=== PATIENT | female | born 1975 | race Caucasian/White ===

== ENCOUNTER 2017-05-04 10:17 | Inpatient (IN) | payer OTHER ==
[~2017-05-04] VITALS: Ht 152.4 cm; Wt 55.4 kg
[~2017-05-04 10:17] MED LIST: ACYCLOVIR400 MG GT; ARTIFICIAL TEA3.5 G1 BOTH EYES; ATROVENT 00.5 MG/2.5 IH; BACTRIM,SEPT1 TABLET GT; BENEFIBER PA1 PACKET PO; CAL-GEST500 MG GT; CARAFATE1 GM GT; CERTAGEN237 ML PEG; CHILDREN'S160 MG/23 GT; COLACE10 MG/ML GT; COLACE100 MG GT; Carafate GT; Cipro GT; DELTASONE20 MG GT; DULCOLAX10 MG PR; DUONEB 2.5-0.5 M3 ML AEROSOL; DUONEB 2.5-0.5 M3 ML IH; DUONEB3 ML IH; EFFEXOR XR75 MG GT; EFFEXOR75 MG PO; EMLA5 GM TP; ENULOSE10 GM/15 M GT; FERROUS SU220 MG/51 GT; FLEET ENEMA-AD118 ML PR; FLORASTOR250 MG GT; FLOVENT 22120 INHALA IH; Feosol GT; Flovent 220 mcg IH; GAS-X80 MG GT; GENERLAC10 GM/15 M GT; GLYCERIN PR; K-SOL20 MEQ/15 GT; LASIX10 MG GT; LASIX10 MG/ML GT; LEVAQUIN500 MG GT; LEVSIN GT; LEXAPRO10 MG GT; LIORESAL I2000 MCG/1 IT; LIORESAL I500 MCG/ML IT; LOVENOX40 MG/0.4 SC; Levsin GT; METHENAMINE HIPP1 G1 GT; MILK OF MAGN GT; MIRALAX17 GM GT; MITRAZOL POWDER30 GM TP; MYLICON,MYLANTA80 MG GT; NYSTATIN100000 UN1 PO; PERIDEX1 ML MM; PERIDEX1 ML PO; PHILLIPS'400 MG/5 M GT; POTASSIUM20 MEQ/11 GT; PROVENTIL,2.5 MG/3 M IH; QUESTRAN4 GM/PACKE PEG; RANITIDINE HCL75 MG GT; RISAMINE OINTM113 GM TP; SIMETHICONE80 MG GT; TEGRETOL-XR,CA100 MG PEG; TEGRETOL100 MG GT; TEGRETOL100 MG PO; THERAGRAN5 ML GT; TRAMADOL HCL50 MG GT; TRANSDERM-SCO1 PATCH TD; TYLENOL REGULA325 MG GT; TYLENOL325 M1 GT; Tegretol GT; Theragran-M,Centrum, PEG; Tylenol Regular Stre PEG; VITAMIN D31000 UNI1 PO; VITAMIN D31000 UNI2 GT; XOPENEX1.25 MG/0. IH; ZANTAC75 M1 GT; ZITHROMAX250 MG GT; ZOSYN 3.3753.375 GM IV; ZOVIRAX200 MG/5 M GT; ZYVOX20 MG/1 ML GT; Zofran IV; Zovirax GT; [UNRECOGNIZED DRUG - OTHER] PEG
[2017-05-04 12:03] LABS: HEMATOCRIT 39.3 % (36.0-46.0); MCH 33.8 PG (29.0-34.0); MCHC 32.6 G/DL (30.0-36.0); MCV 103.7 FL (83-99); MEAN PLAT.VOLUME 10.8 uM^3 (9.5-12.4); PLATELET COUNT 133 K/uL (156-360); RBC DIS.WIDTH-CV 12.8 % (11.8-14.6); RBC DIS.WIDTH-SD 48.9 % (39-53); RED BLOOD COUNT 3.79 M/uL (3.80-5.20); WHITE BLOOD COUNT 6.5 K/uL (4.1-10.2)
[2017-05-04 12:04] LABS: CREATININE 0.5 mg/dL (0.6-1.3); POTASSIUM 3.6 mEq/L (3.7-5.4)
[2017-05-04 12:12] LABS: CHLORIDE 104 mEq/L (99-109); POTASSIUM 3.7 mEq/L (3.7-5.4); SODIUM 141 mEq/L (136-147)
[2017-05-04 12:13] LABS: INTER. NORMALIZED RATIO 1.1; PROTHROMBIN TIME 11.4 (9.2-11.2)
[2017-05-04 12:14] LABS: GLUCOSE 83 mg/dL (70-99)
[2017-05-04 12:15] LABS: ANION GAP 12 MEQ/L (2-14)
[2017-05-04 12:18] LABS: GFR ESTIMATE (CALCULATED) > 59 mL/min/
[2017-05-04 12:19] LABS: UREA NITROGEN (BUN) 20 mg/dL (9-23)
[2017-05-04] MEDS ORDERED: VITAMIN D31000 UNI2 GT (14:05)
[2017-05-04 16:14] VITALS: BP 122/76
[2017-05-04 18:54] LABS: METH RESISTANT S AUREUS PCR NEGATIVE (NEGATIVE)
[2017-05-04 18:59] LABS: PROBE CHECK PASS; SPECIMEN PROCESSING CONTROL PASS
[2017-05-04 19:15] VITALS: BP 146/79
[2017-05-04 23:17] VITALS: BP 125/62
[2017-05-05 04:39] VITALS: BP 132/79
[2017-05-05 06:12] LABS: MCH 34.2 PG (29.0-34.0); MCHC 32.3 G/DL (30.0-36.0); MCV 106.1 FL (83-99); MEAN PLAT.VOLUME 11.6 uM^3 (9.5-12.4); PLATELET COUNT 98 K/uL (156-360); RBC DIS.WIDTH-CV 12.5 % (11.8-14.6); RBC DIS.WIDTH-SD 49.3 % (39-53)
[2017-05-05 06:42] LABS: ANION GAP 14 MEQ/L (2-14); CHLORIDE 110 MEQ/L (99-109); GFR ESTIMATE (CALCULATED) > 59 mL/min/; GLUCOSE 53 mg/dL (70-99); POTASSIUM 3.7 MEQ/L (3.7-5.4); SAMPLE HEMOLYSIS CHECK 0; SAMPLE ICTERIC CHECK 0; SAMPLE LIPEMIA CHECK 0; SODIUM 140 MEQ/L (136-147); UREA NITROGEN (BUN) 18 mg/dL (9-23)
[2017-05-05 07:36] LABS: ABS NEUTROPHIL COUNT 4.2; ANISOCYTOSIS 1+; ATYPICAL LYMPHOCYTE 1.7 %; BAND NEUTROPHILS 5.3 % (0-8.0); EOSINOPHIL ABS CT 0; INSTRUMENT ABS NEUTROPHIL CT 3.9 K/uL; LYMPHOCYTES 14.9 % (15.0-45.0); MACROCYTES 1+; SEG.NEUTROPHILS 78.1 % (46.0-76.0)
[2017-05-05 07:41] VITALS: BP 123/71
[2017-05-05 11:33] VITALS: BP 127/78
[2017-05-05 15:35] VITALS: BP 129/80
[2017-05-05 19:30] VITALS: BP 145/76
[2017-05-05 22:53] LABS: ADD MIUA? NO; BILIRUBIN NEGATIVE; BLOOD NEGATIVE; COLOR YELLOW ((YELLOW)); GLUCOSE (STRIP) NEGATIVE; KETONES 80; LEUKOCYTES NEGATIVE; NITRITE NEGATIVE; PROTEIN (STRIP) 30; SPECIFIC GRAVITY 1.023 (1.000-1.030); UROBILINOGEN 0.2 MG/DL (0.2-1.0)
[2017-05-05 23:45] VITALS: BP 127/71
[2017-05-06 04:39] VITALS: BP 132/67
[2017-05-06 05:48] LABS: EOSINOPHIL (%) 0.4 % (0-5); HEMATOCRIT 32.5 % (36.0-46.0); IMMATURE GRANULOCYTE (%) 0.2 % (0.0-0.7); INSTRUMENT ABS NEUTROPHIL CT 4.2 K/uL; LYMPHOCYTE COUNT 0.8 K/uL (1.0-2.8); MCHC 32.3 G/DL (30.0-36.0); MCV 105.2 FL (83-99); MEAN PLAT.VOLUME 10.9 uM^3 (9.5-12.4); MONOCYTE (%) 5.7 % (3-12); MONOCYTE COUNT 0.3 K/uL (0-0.8); NEUTROPHIL (%) 77.8 % (45-76); NEUTROPHIL COUNT 4.2 K/uL (1.8-6.4); PLATELET COUNT 111 K/uL (156-360); RBC DIS.WIDTH-CV 12.5 % (11.8-14.6); RBC DIS.WIDTH-SD 48.3 % (39-53); RED BLOOD COUNT 3.09 M/uL (3.80-5.20); WHITE BLOOD COUNT 5.4 K/uL (4.1-10.2)
[2017-05-06 07:28] LABS: CHLORIDE 113 mEq/L (99-109); SODIUM 141 mEq/L (136-147)
[2017-05-06 07:30] LABS: GLUCOSE 43 mg/dL (70-99)
[2017-05-06 07:31] LABS: ANION GAP 14 MEQ/L (2-14)
[2017-05-06 07:33] LABS: GFR ESTIMATE (CALCULATED) > 59 mL/min/
[2017-05-06 07:34] LABS: UREA NITROGEN (BUN) 14 mg/dL (9-23)
[2017-05-06 09:00] VITALS: BP 127/66
[2017-05-06 13:25] VITALS: BP 119/56
[2017-05-06 17:23] VITALS: BP 123/72
[2017-05-06 19:30] VITALS: BP 134/69
[2017-05-07 00:46] VITALS: BP 132/66
[2017-05-07 04:19] VITALS: BP 136/70
[2017-05-07 05:48] LABS: EOSINOPHIL (%) 0.9 % (0-5); EOSINOPHIL COUNT 0.1 K/uL (0-0.3); HEMATOCRIT 34.3 % (36.0-46.0); IMMATURE GRANULOCYTE (%) 0.4 % (0.0-0.7); INSTRUMENT ABS NEUTROPHIL CT 5.4 K/uL; LYMPHOCYTE COUNT 1.1 K/uL (1.0-2.8); MCHC 34.4 G/DL (30.0-36.0); MCV 104.6 FL (83-99); MEAN PLAT.VOLUME 11.3 uM^3 (9.5-12.4); MONOCYTE (%) 5.5 % (3-12); MONOCYTE COUNT 0.4 K/uL (0-0.8); NEUTROPHIL (%) 77.3 % (45-76); NEUTROPHIL COUNT 5.4 K/uL (1.8-6.4); PLATELET COUNT 124 K/uL (156-360); RBC DIS.WIDTH-CV 12.4 % (11.8-14.6); RBC DIS.WIDTH-SD 47.7 % (39-53); RED BLOOD COUNT 3.28 M/uL (3.80-5.20)
[2017-05-07 06:26] LABS: ANION GAP 14 MEQ/L (2-14); CHLORIDE 107 MEQ/L (99-109); GFR ESTIMATE (CALCULATED) > 59 mL/min/; GLUCOSE 46 mg/dL (70-99); POTASSIUM 2.7 MEQ/L (3.7-5.4); SAMPLE HEMOLYSIS CHECK 0; SAMPLE ICTERIC CHECK 0; SAMPLE LIPEMIA CHECK 0; SODIUM 137 MEQ/L (136-147); UREA NITROGEN (BUN) 7 mg/dL (9-23)
[2017-05-07 08:00] VITALS: BP 131/69
[2017-05-07 13:00] VITALS: BP 136/66
[2017-05-07 19:30] VITALS: BP 135/62
[2017-05-08 00:20] VITALS: BP 130/23
[2017-05-08 04:37] VITALS: BP 132/67
[2017-05-08 05:58] LABS: EOSINOPHIL COUNT 0.1 K/uL (0-0.3); IMMATURE GRANULOCYTE (%) 0.5 % (0.0-0.7); INSTRUMENT ABS NEUTROPHIL CT 4.3 K/uL; LYMPHOCYTE COUNT 1.2 K/uL (1.0-2.8); MCH 35.5 PG (29.0-34.0); MCHC 34.7 G/DL (30.0-36.0); MCV 102.4 FL (83-99); MONOCYTE (%) 6.6 % (3-12); MONOCYTE COUNT 0.4 K/uL (0-0.8); NEUTROPHIL (%) 71.8 % (45-76); NEUTROPHIL COUNT 4.3 K/uL (1.8-6.4); RBC DIS.WIDTH-CV 12.2 % (11.8-14.6); RBC DIS.WIDTH-SD 45.7 % (39-53); RED BLOOD COUNT 3.32 M/uL (3.80-5.20); WHITE BLOOD COUNT 5.9 K/uL (4.1-10.2)
[2017-05-08 06:36] LABS: ANION GAP 10 MEQ/L (2-14); CHLORIDE 108 MEQ/L (99-109); GFR ESTIMATE (CALCULATED) > 59 mL/min/; POTASSIUM 3.4 MEQ/L (3.7-5.4); SAMPLE HEMOLYSIS CHECK 1; SAMPLE ICTERIC CHECK 0; SAMPLE LIPEMIA CHECK 0; SODIUM 137 MEQ/L (136-147); UREA NITROGEN (BUN) 2 mg/dL (9-23)
[2017-05-08 06:47] LABS: GLUCOSE 116 mg/dL (70-99)
[2017-05-08 07:49] LABS: HEMATOLOGY COMMENT 1 SN; MEAN PLAT.VOLUME 11.9 uM^3 (9.5-12.4); PLAT.SUFFICIENCY DECREASED; PLATELET COUNT 117 K/uL (156-360)
[2017-05-08 08:00] VITALS: BP 133/80
[2017-05-08 12:00] VITALS: BP 128/81
[2017-05-08 19:46] VITALS: BP 137/89
[2017-05-08 23:13] VITALS: BP 132/63
[2017-05-09 05:00] VITALS: BP 127/77
[2017-05-09 08:17] LABS: HEMATOCRIT 31.8 % (36.0-46.0); MCH 35.6 PG (29.0-34.0); MCHC 35.2 G/DL (30.0-36.0); MEAN PLAT.VOLUME 10.6 uM^3 (9.5-12.4); PLATELET COUNT 128 K/uL (156-360); RBC DIS.WIDTH-CV 12.3 % (11.8-14.6); RBC DIS.WIDTH-SD 45.3 % (39-53); RED BLOOD COUNT 3.15 M/uL (3.80-5.20)
[2017-05-09 08:45] VITALS: BP 120/77
[2017-05-09 08:47] LABS: ANION GAP 6 MEQ/L (2-14); CHLORIDE 105 MEQ/L (99-109); GFR ESTIMATE (CALCULATED) > 59 mL/min/; GLUCOSE 122 mg/dL (70-99); POTASSIUM 3.4 MEQ/L (3.7-5.4); SAMPLE HEMOLYSIS CHECK 0; SAMPLE ICTERIC CHECK 0; SAMPLE LIPEMIA CHECK 0; SODIUM 139 MEQ/L (136-147); UREA NITROGEN (BUN) 4 mg/dL (9-23)
[2017-05-09 08:48] LABS: ABS NEUTROPHIL COUNT 3.9; BASOPHILS 0.9 %; EOSINOPHIL ABS CT 0.2; EOSINOPHILS 2.6 % (0-5.0); INSTRUMENT ABS NEUTROPHIL CT 3.8 K/uL; LYMPHOCYTES 28.7 % (15.0-45.0); SEG.NEUTROPHILS 64.3 % (46.0-76.0); SMUDGE CELLS 7.8; VANCOMYCIN, TROUGH 10.7 MCG/ML (10-20)
[2017-05-09] MEDS ORDERED: LEVOFLOXACIN500 MG PO (10:00)
== END 2017-05-09 13:14 | DRG 871 ==
LOC: EME 10:17 → 4EAST 14:18 → EDOF 14:18 → 4EAST 15:48
PROVIDERS: Emergency Medicine; Internal Medicine
DX: A41.9 Sepsis, unspecified organism (principal); J96.21 Acute and chronic respiratory failure with hypoxia; J69.0 Pneumonitis due to inhalation of food and vomit; R40.3 Persistent vegetative state; Z93.0 Tracheostomy status; K56.0 Paralytic ileus; D69.6 Thrombocytopenia, unspecified; Z93.1 Gastrostomy status; R13.10 Dysphagia, unspecified; F07.81 Postconcussional syndrome; F11.20 Opioid dependence, uncomplicated; G80.9 Cerebral palsy, unspecified; R65.20 Severe sepsis without septic shock; K21.9 Gastro-esophageal reflux disease without esophagitis; G89.29 Other chronic pain; F09 Unspecified mental disorder due to known physiological condition; Y95 Nosocomial condition; Z66 Do not resuscitate; Z85.3 Personal history of malignant neoplasm of breast; Z87.01 Personal history of pneumonia (recurrent); Z87.442 Personal history of urinary calculi; Z87.820 Personal history of traumatic brain injury; Z87.891 Personal history of nicotine dependence; Z88.1 Allergy status to other antibiotic agents; Z88.2 Allergy status to sulfonamides
CPT/HCPCS: 71010; 74000; 74020; 74177; 80047; 80048; 80048 91; 80202; 81003; 82948; 83605; 84132 91; 85025; 85027; 85610; 85730; 86900; 86901; 87040; 87070; 87077; 87081; 87147; 87186; 87205; 87641; 93005; 94667; 94668; 94760; 94799; 99202; 99281; 99285; J1650; J1956; J2543; J3370; J3480; J7030; J7042; J7050; S0028; S0030

== ENCOUNTER → 2017-05-30 | Outpatient (CLI) | payer OTHER ==
[~2017-05-30] MED LIST changes: +LEVOFLOXACIN500 MG PO
== END ==
LOC: JMC 05-23 15:00
DX: C50.919 Malignant neoplasm of unspecified site of unspecified female breast (principal)
CPT/HCPCS: G0463

== ENCOUNTER 2017-07-14 07:46 | Day surgery (SDC) | payer OTHER ==
[~2017-07-14] VITALS: Ht 157.5 cm; Wt 52.6 kg
[~2017-07-14 07:46] MED LIST changes: +ASCORBIC ACID500 M3 PO; +BACLOFEN20 MG GT; +EAR DROPS15 ML BOTH EARS; +H20 FLUSH GT; +LIDODERM 5% P1 PATCH TD; +LUBRIFRESH PM3.5 GM BOTH EYES; +ORAZINC220 MG GT; +PAIN RELIE160 MG/52 GT; +PRUNE JUICE GT; +[UNRECOGNIZED DRUG - OTHER] GT; +[UNRECOGNIZED DRUG - REMARK] GT
[2017-07-14 08:56] VITALS: BP 158/96
[2017-07-14 15:43] VITALS: BP 123/75
[2017-07-14 16:09] LABS: APPEARANCE CLEAR/COLORLESS; RED CELL COUNT 33 /MM^3 (0-1); RED CELL DILUTION 1; WBC DILUTION 1; WHITE CELL COUNT 3 /MM^3 (0-5); WHITE CELL RAW COUNT 5
[2017-07-14 18:24] LABS: CSF EOSINOPHILS 0 % (0-25); MONO RAW COUNT 5; MONONUCLEAR WBC'S 100 % (50-90); POLYNUCLEAR WBC'S 0 % (0-3)
[2017-07-14 18:27] LABS: RED CELL AREA COUNTED ND; RED CELL COUNT (RECHECK) ND /MM^3 (0-1); RED CELL DILUTION ND
[2017-07-14 19:53] VITALS: BP 123/61
[2017-07-15 00:59] VITALS: BP 117/64
[2017-07-15 04:17] VITALS: BP 110/67
[2017-07-15 07:47] VITALS: BP 133/77
[2017-07-15 16:28] VITALS: BP 97/69
[2017-07-18 10:21] LABS: INTERNAL CONTROL VALID? YES
== END 2017-07-15 16:42 ==
LOC: SDC 07:46 → 2SOUTH 13:32 → SDC 13:54 → ENRESERV 14:36 → 2EAST 15:25
PROVIDERS: Neurological Surgery
PROC: 00HU03Z Insertion of Infusion Device into Spinal Canal, Open Approach (ICD-10-PCS; principal; 2017-07-14)
DX: T85.695A Other mechanical complication of other nervous system device, implant or graft, initial encounter (principal); G24.8 Other dystonia; G80.3 Athetoid cerebral palsy; M62.838 Other muscle spasm; M62.49 Contracture of muscle, multiple sites; Z87.820 Personal history of traumatic brain injury; Z85.3 Personal history of malignant neoplasm of breast; Z92.21 Personal history of antineoplastic chemotherapy; Z87.440 Personal history of urinary (tract) infections; Z86.14 Personal history of Methicillin resistant Staphylococcus aureus infection; Z86.19 Personal history of other infectious and parasitic diseases; G50.0 Trigeminal neuralgia; Z93.0 Tracheostomy status; Z93.1 Gastrostomy status; Y83.1 Surgical operation with implant of artificial internal device as the cause of abnormal reaction of the patient, or of later complication, without mention of misadventure at the time of the procedure
CPT/HCPCS: 82945; 84157; 84703; 87070; 87205; 89051; 94799; C1772; G0378; J1100; J2250; J2405; J2710; J3010

== ENCOUNTER 2017-12-08 20:25 | Inpatient (IN) | payer OTHER ==
[~2017-12-08] VITALS: Ht 162.6 cm; Wt 47.6 kg
[2017-12-08 22:12] LABS: BASOPHIL (%) 0 % (0-1); EOSINOPHIL (%) 2.5 % (0-5); EOSINOPHIL COUNT 0.1 K/uL (0-0.3); HEMATOCRIT 34.8 % (36.0-46.0); HEMOGLOBIN 11.5 G/DL (11.9-15.5); IMMATURE GRANULOCYTE (%) 0.3 % (0.0-0.7); LYMPHOCYTE COUNT 0.6 K/uL (1.0-2.8); MCH 34.4 PG (29.0-34.0); MCV 104.2 FL (83-99); MONOCYTE COUNT 0.2 K/uL (0-0.8); NEUTROPHIL (%) 73.2 % (45-76); NEUTROPHIL COUNT 2.3 K/uL (1.8-6.4); PLATELET COUNT 120 K/uL (156-360); RBC DIS.WIDTH-CV 13.2 % (11.8-14.6); RBC DIS.WIDTH-SD 50.9 % (39-53); RED BLOOD COUNT 3.34 M/uL (3.80-5.20); WHITE BLOOD COUNT 3.2 K/uL (4.1-10.2)
[2017-12-08 22:25] LABS: BASE EXCESS 5.4 mEq/L (-3 to +3); BICARBONATE 31.5 mEq/L (22-26); CARBOXY HGB 1.4 % (0-5); METHEMOGLOBIN 1.3 % (0-1.5); PCO2 52 mm Hg (35-45); PO2 101 mm Hg (80-100); SITE LR; pH 7.39 (7.35-7.45)
[2017-12-08 22:26] LABS: COMMENTS - BLOOD GASES A+C+; O2 FLOW 15 L/MIN
[2017-12-08 22:27] LABS: FI02 75 %; TOTAL RESP RATE 20 resp/min
[2017-12-08 23:19] LABS: ALBUMIN 3.7 g/dL (3.2-4.8); CHLORIDE 99 mEq/L (99-109); POTASSIUM 4.6 mEq/L (3.7-5.4); SODIUM 136 mEq/L (136-147)
[2017-12-08 23:22] LABS: GLUCOSE 95 mg/dL (70-99); TOTAL PROTEIN 6.8 g/dL (6.4-8.3)
[2017-12-08 23:24] LABS: TOTAL BILIRUBIN 0.2 mg/dL (0.0-1.0)
[2017-12-08 23:25] LABS: ALKALINE PHOSPHATASE 110 IU/L (3-129); CREATININE 0.4 mg/dL (0.6-1.3); GFR ESTIMATE (CALCULATED) > 59 mL/min/
[2017-12-08 23:26] LABS: UREA NITROGEN (BUN) 15 mg/dL (9-23)
[2017-12-08 23:27] LABS: AST (GOT) 45 IU/L (2-34)
[2017-12-08 23:28] LABS: ALT (GPT) 33 IU/L (3-49)
[2017-12-08 23:31] LABS: TROP-I INTERPRETATION NEGATIVE; TROPONIN-I < 0.01 ng/mL (0.0-0.30)
[2017-12-09] VITALS (12 sets, daily range): BP systolic 84–121; BP diastolic 54–75
[2017-12-09] MEDS ORDERED: AMOX TR-K CLV1 EAC4 PO (00:31)
[2017-12-09] MEDS ORDERED: MILK OF MAGN GT (00:33)
[2017-12-09] MEDS ORDERED: FERROUS SU220 MG/53 GT (00:35)
[2017-12-09] MEDS ORDERED: REGLAN10 MG/10 M PO (00:41)
[2017-12-09 03:34] LABS: APPEARANCE CLOUDY ((CLEAR)); BILIRUBIN NEGATIVE; BLOOD NEGATIVE; COLOR YELLOW ((YELLOW)); GLUCOSE (STRIP) NEGATIVE; KETONES NEGATIVE; LEUKOCYTES MODERATE; NITRITE NEGATIVE; PROTEIN (STRIP) 30; SPECIFIC GRAVITY 1.023 (1.000-1.030); UROBILINOGEN 0.2 MG/DL (0.2-1.0)
[2017-12-09 04:38] LABS: BACTERIA RARE /HPF; EPITHELIAL CELLS 3+ /HPF; MUCUS TRACE /LPF; RED BLOOD CELLS 0-5 /HPF (0-5); UCUL ADDED? YES; WHITE BLOOD CELLS 15-20 /HPF (0-5)
[2017-12-09 09:28] LABS: BASOPHIL (%) 0 % (0-1); EOSINOPHIL (%) 0.4 % (0-5); HEMOGLOBIN 11.7 G/DL (11.9-15.5); IMMATURE GRANULOCYTE (%) 0.4 % (0.0-0.7); LYMPHOCYTE (%) 13.3 % (15-42); LYMPHOCYTE COUNT 0.3 K/uL (1.0-2.8); MCH 34.1 PG (29.0-34.0); MCHC 32.5 G/DL (30.0-36.0); MONOCYTE (%) 8.4 % (3-12); MONOCYTE COUNT 0.2 K/uL (0-0.8); NEUTROPHIL (%) 77.5 % (45-76); NEUTROPHIL COUNT 1.8 K/uL (1.8-6.4); PLATELET COUNT 114 K/uL (156-360); RBC DIS.WIDTH-CV 13.4 % (11.8-14.6); RBC DIS.WIDTH-SD 51.9 % (39-53); RED BLOOD COUNT 3.43 M/uL (3.80-5.20); WHITE BLOOD COUNT 2.3 K/uL (4.1-10.2)
[2017-12-09 11:30] LABS: CHLORIDE 103 MEQ/L (99-109); CREATININE 0.4 MG/DL (0.6-1.3); GFR ESTIMATE (CALCULATED) > 59 mL/min/; GLUCOSE 107 mg/dL (70-99); POTASSIUM 4.1 MEQ/L (3.7-5.4); SODIUM 138 MEQ/L (136-147); UREA NITROGEN (BUN) 12 mg/dL (9-23)
[2017-12-09 16:05] LABS: BASE EXCESS -0.5 mEq/L (-3 to +3); BICARBONATE 25.4 mEq/L (22-26); CARBOXY HGB 1.3 % (0-5); METHEMOGLOBIN 1.8 % (0-1.5); PCO2 46 mm Hg (35-45); PO2 96 mm Hg (80-100); pH 7.35 (7.35-7.45)
[2017-12-09 16:06] LABS: COMMENTS - BLOOD GASES C+; DEVICE TP; FI02 96 %; O2 FLOW 15 L/MIN; SITE RR; TOTAL RESP RATE 20 resp/min
[2017-12-09 18:10] LABS: BASE EXCESS 0.4 mEq/L (-3 to +3); CARBOXY HGB 1.7 % (0-5); COMMENTS - BLOOD GASES C+; DEVICE VENT; FI02 50 %; MECHANICAL RATE 16 resp/min; METHEMOGLOBIN 1.4 % (0-1.5); MODE AC; PCO2 44 mm Hg (35-45); PO2 60 mm Hg (80-100); SITE RR; TOTAL RESP RATE 26 resp/min; pH 7.38 (7.35-7.45)
[2017-12-09 18:11] LABS: PEEP 7 CM/H20; TIDAL VOLUME 440 ML
[2017-12-09 22:05] LABS: HIGH-SENS C-REACTIVE PROTEIN > 8.00 MG/DL (0.02-0.20)
[2017-12-10] VITALS (24 sets, daily range): BP systolic 81–126; BP diastolic 57–80
[2017-12-10 05:07] LABS: HEMATOCRIT 31.7 % (36.0-46.0); MCH 33.3 PG (29.0-34.0); MCHC 31.5 G/DL (30.0-36.0); MCV 105.7 FL (83-99); PLATELET COUNT 94 K/uL (156-360); RBC DIS.WIDTH-CV 13.2 % (11.8-14.6); RBC DIS.WIDTH-SD 51.4 % (39-53); WHITE BLOOD COUNT 3.1 K/uL (4.1-10.2)
[2017-12-10 05:47] LABS: CHLORIDE 108 MEQ/L (99-109); CREATININE 0.3 MG/DL (0.6-1.3); GFR ESTIMATE (CALCULATED) > 59 mL/min/; GLUCOSE 159 mg/dL (70-99); POTASSIUM 3.3 MEQ/L (3.7-5.4); SODIUM 137 MEQ/L (136-147); UREA NITROGEN (BUN) 8 mg/dL (9-23)
[2017-12-10 05:51] LABS: ABS NEUTROPHIL COUNT 2.9; ANISOCYTOSIS 1+; BAND NEUTROPHILS 29.8 % (0-8.0); EOSINOPHIL ABS CT 0; LYMPHOCYTES 4.4 % (15.0-45.0); MACROCYTES 1+; MONOCYTES 3.5 % (0-9.0); PLAT.SUFFICIENCY DECREASED; SEG.NEUTROPHILS 62.3 % (46.0-76.0)
[2017-12-11] VITALS (24 sets, daily range): BP systolic 97–131; BP diastolic 63–97
[2017-12-11 14:43] LABS: HEMATOCRIT 31.3 % (36.0-46.0); HEMOGLOBIN 10.1 G/DL (11.9-15.5); MCH 34.7 PG (29.0-34.0); MCHC 32.3 G/DL (30.0-36.0); MCV 107.6 FL (83-99); PLATELET COUNT 112 K/uL (156-360); RBC DIS.WIDTH-CV 13.7 % (11.8-14.6); RBC DIS.WIDTH-SD 54.6 % (39-53); RED BLOOD COUNT 2.91 M/uL (3.80-5.20); WHITE BLOOD COUNT 4.8 K/uL (4.1-10.2)
[2017-12-11 15:50] LABS: CHLORIDE 111 MEQ/L (99-109); CREATININE 0.4 MG/DL (0.6-1.3); GFR ESTIMATE (CALCULATED) > 59 mL/min/; GLUCOSE 136 mg/dL (70-99); POTASSIUM 3.3 MEQ/L (3.7-5.4); UREA NITROGEN (BUN) 12 mg/dL (9-23)
[2017-12-11 15:51] LABS: SODIUM 144 MEQ/L (136-147)
[2017-12-12] VITALS (23 sets, daily range): BP systolic 95–142; BP diastolic 65–98
[2017-12-12 12:03] LABS: HEMOGLOBIN 9.8 G/DL (11.9-15.5); MCH 33.9 PG (29.0-34.0); MCHC 31.6 G/DL (30.0-36.0); MCV 107.3 FL (83-99); PLATELET COUNT 117 K/uL (156-360); RBC DIS.WIDTH-CV 14.2 % (11.8-14.6); RBC DIS.WIDTH-SD 56.1 % (39-53); RED BLOOD COUNT 2.89 M/uL (3.80-5.20); WHITE BLOOD COUNT 5.2 K/uL (4.1-10.2)
[2017-12-12 12:21] LABS: CHLORIDE 111 MEQ/L (99-109); POTASSIUM 3.4 MEQ/L (3.7-5.4); SODIUM 140 MEQ/L (136-147)
[2017-12-12 12:27] LABS: CREATININE 0.4 MG/DL (0.6-1.3); GFR ESTIMATE (CALCULATED) > 59 mL/min/; GLUCOSE 94 mg/dL (70-99); UREA NITROGEN (BUN) 14 mg/dL (9-23)
[2017-12-12 12:39] LABS: BASOPHIL (%) 0 % (0-1); EOSINOPHIL (%) 0 % (0-5); IMMATURE GRANULOCYTE (%) 0.6 % (0.0-0.7); LYMPHOCYTE (%) 31.5 % (15-42); LYMPHOCYTE COUNT 1.7 K/uL (1.0-2.8); MONOCYTE (%) 5.9 % (3-12); MONOCYTE COUNT 0.3 K/uL (0-0.8); NEUTROPHIL COUNT 3.3 K/uL (1.8-6.4); PLAT.SUFFICIENCY ADEQUATE
[2017-12-12 13:17] LABS: FOLIC ACID (FOLATE) 21.8 NG/ML (5.0-22.0)
[2017-12-13] VITALS (24 sets, daily range): BP systolic 111–142; BP diastolic 72–95
[2017-12-13 11:15] LABS: HEMATOCRIT 32.8 % (36.0-46.0); HEMOGLOBIN 10.5 G/DL (11.9-15.5); MCH 33.9 PG (29.0-34.0); MCV 105.8 FL (83-99); PLATELET COUNT 124 K/uL (156-360); RBC DIS.WIDTH-CV 13.9 % (11.8-14.6); WHITE BLOOD COUNT 4.8 K/uL (4.1-10.2)
[2017-12-13 11:31] LABS: CHLORIDE 106 MEQ/L (99-109); POTASSIUM 3.2 MEQ/L (3.7-5.4); SODIUM 139 MEQ/L (136-147)
[2017-12-13 11:36] LABS: CREATININE 0.4 MG/DL (0.6-1.3); GFR ESTIMATE (CALCULATED) > 59 mL/min/; GLUCOSE 88 mg/dL (70-99); UREA NITROGEN (BUN) 9 mg/dL (9-23)
[2017-12-13 11:42] LABS: ANISOCYTOSIS 1+; ATYPICAL LYMPHOCYTE 0.9 %; EOSINOPHIL ABS CT 0; MACROCYTES 1+; MONOCYTES 3.5 % (0-9.0); OVALOCYTES 1+; PLAT.SUFFICIENCY DECREASED; TEAR DROP CELLS 1+
[2017-12-13 11:51] LABS: BAND NEUTROPHILS 0.9 % (0-8.0); LYMPHOCYTES 32.7 % (15.0-45.0)
[2017-12-13 13:08] LABS: BASE EXCESS 6.2 mEq/L (-3 to +3); BICARBONATE 31.2 mEq/L (22-26); COMMENTS - BLOOD GASES A+C+; METHEMOGLOBIN 1.6 % (0-1.5); PCO2 46 mm Hg (35-45); PO2 70 mm Hg (80-100); SITE LR; pH 7.44 (7.35-7.45)
[2017-12-13 13:09] LABS: DEVICE 840; FI02 30 %; MODE TC
[2017-12-14] VITALS (24 sets, daily range): BP systolic 89–138; BP diastolic 64–94
[2017-12-14 07:36] LABS: BASOPHIL (%) 0.2 % (0-1); EOSINOPHIL COUNT 0.1 K/uL (0-0.3); HEMATOCRIT 36.6 % (36.0-46.0); HEMOGLOBIN 11.9 G/DL (11.9-15.5); IMMATURE GRANULOCYTE (%) 0.4 % (0.0-0.7); LYMPHOCYTE (%) 27.2 % (15-42); LYMPHOCYTE COUNT 1.5 K/uL (1.0-2.8); MCH 33.8 PG (29.0-34.0); MCHC 32.5 G/DL (30.0-36.0); MONOCYTE (%) 5.1 % (3-12); MONOCYTE COUNT 0.3 K/uL (0-0.8); NEUTROPHIL (%) 65.1 % (45-76); NEUTROPHIL COUNT 3.6 K/uL (1.8-6.4); PLATELET COUNT 147 K/uL (156-360); RBC DIS.WIDTH-CV 13.5 % (11.8-14.6); RBC DIS.WIDTH-SD 51.9 % (39-53); RED BLOOD COUNT 3.52 M/uL (3.80-5.20); WHITE BLOOD COUNT 5.5 K/uL (4.1-10.2)
[2017-12-14 08:06] LABS: CHLORIDE 99 MEQ/L (99-109); CREATININE 0.4 MG/DL (0.6-1.3); GFR ESTIMATE (CALCULATED) > 59 mL/min/; GLUCOSE 125 mg/dL (70-99); POTASSIUM 3.1 MEQ/L (3.7-5.4); SODIUM 142 MEQ/L (136-147); UREA NITROGEN (BUN) 5 mg/dL (9-23)
[2017-12-14 19:07] LABS: CHLORIDE 96 MEQ/L (99-109); CREATININE 0.4 MG/DL (0.6-1.3); GFR ESTIMATE (CALCULATED) > 59 mL/min/; GLUCOSE 119 mg/dL (70-99); SODIUM 141 MEQ/L (136-147); UREA NITROGEN (BUN) 7 mg/dL (9-23)
[2017-12-14 19:11] LABS: POTASSIUM 3.9 MEQ/L (3.7-5.4)
[2017-12-15] VITALS (23 sets, daily range): BP systolic 83–113; BP diastolic 59–79
[2017-12-15 06:39] LABS: CHLORIDE 94 MEQ/L (99-109); CREATININE 0.4 MG/DL (0.6-1.3); GFR ESTIMATE (CALCULATED) > 59 mL/min/; GLUCOSE 126 mg/dL (70-99); POTASSIUM 3.8 MEQ/L (3.7-5.4); SODIUM 136 MEQ/L (136-147); UREA NITROGEN (BUN) 11 mg/dL (9-23)
[2017-12-15 08:50] LABS: BASOPHIL (%) 0 % (0-1); EOSINOPHIL COUNT 0.1 K/uL (0-0.3); HEMATOCRIT 32.9 % (36.0-46.0); HEMOGLOBIN 10.7 G/DL (11.9-15.5); IMMATURE GRANULOCYTE (%) 0.5 % (0.0-0.7); LYMPHOCYTE (%) 30.5 % (15-42); LYMPHOCYTE COUNT 1.8 K/uL (1.0-2.8); MCH 33.9 PG (29.0-34.0); MCHC 32.5 G/DL (30.0-36.0); MCV 104.1 FL (83-99); MONOCYTE (%) 4.8 % (3-12); MONOCYTE COUNT 0.3 K/uL (0-0.8); NEUTROPHIL (%) 62.2 % (45-76); NEUTROPHIL COUNT 3.7 K/uL (1.8-6.4); PLATELET COUNT 148 K/uL (156-360); RBC DIS.WIDTH-CV 13.7 % (11.8-14.6); RBC DIS.WIDTH-SD 53.1 % (39-53); RED BLOOD COUNT 3.16 M/uL (3.80-5.20); WHITE BLOOD COUNT 5.9 K/uL (4.1-10.2)
[2017-12-15 11:22] LABS: PHOSPHORUS 2.5 mg/dL (2.5-4.9)
[2017-12-16] VITALS (20 sets, daily range): BP systolic 91–112; BP diastolic 55–76
[2017-12-16 06:59] LABS: BASOPHIL (%) 0.2 % (0-1); EOSINOPHIL (%) 1.7 % (0-5); EOSINOPHIL COUNT 0.1 K/uL (0-0.3); HEMATOCRIT 30.2 % (36.0-46.0); HEMOGLOBIN 10.3 G/DL (11.9-15.5); IMMATURE GRANULOCYTE (%) 0.3 % (0.0-0.7); LYMPHOCYTE (%) 27.8 % (15-42); LYMPHOCYTE COUNT 1.6 K/uL (1.0-2.8); MCH 34.9 PG (29.0-34.0); MCHC 34.1 G/DL (30.0-36.0); MCV 102.4 FL (83-99); MONOCYTE COUNT 0.4 K/uL (0-0.8); NEUTROPHIL COUNT 3.7 K/uL (1.8-6.4); NRBC (%) 0.3 /100 WBC (0-0); PLATELET COUNT 138 K/uL (156-360); RBC DIS.WIDTH-SD 52.4 % (39-53); RED BLOOD COUNT 2.95 M/uL (3.80-5.20); WHITE BLOOD COUNT 5.9 K/uL (4.1-10.2)
[2017-12-16 07:40] LABS: CHLORIDE 97 MEQ/L (99-109); CREATININE 0.4 MG/DL (0.6-1.3); GFR ESTIMATE (CALCULATED) > 59 mL/min/; GLUCOSE 131 mg/dL (70-99); POTASSIUM 3.9 MEQ/L (3.7-5.4); SODIUM 135 MEQ/L (136-147); UREA NITROGEN (BUN) 10 mg/dL (9-23)
[2017-12-17] VITALS (23 sets, daily range): BP systolic 80–104; BP diastolic 52–76
[2017-12-17 07:35] LABS: BASOPHIL (%) 0 % (0-1); EOSINOPHIL (%) 1.9 % (0-5); EOSINOPHIL COUNT 0.1 K/uL (0-0.3); HEMATOCRIT 29.6 % (36.0-46.0); HEMOGLOBIN 9.7 G/DL (11.9-15.5); IMMATURE GRANULOCYTE (%) 0.2 % (0.0-0.7); LYMPHOCYTE (%) 24.7 % (15-42); LYMPHOCYTE COUNT 1.2 K/uL (1.0-2.8); MCH 34.3 PG (29.0-34.0); MCHC 32.8 G/DL (30.0-36.0); MCV 104.6 FL (83-99); MONOCYTE (%) 6.2 % (3-12); MONOCYTE COUNT 0.3 K/uL (0-0.8); NEUTROPHIL COUNT 3.3 K/uL (1.8-6.4); PLATELET COUNT 145 K/uL (156-360); RBC DIS.WIDTH-CV 14.1 % (11.8-14.6); RBC DIS.WIDTH-SD 53.6 % (39-53); RED BLOOD COUNT 2.83 M/uL (3.80-5.20); WHITE BLOOD COUNT 4.9 K/uL (4.1-10.2)
[2017-12-17 07:51] LABS: CHLORIDE 101 MEQ/L (99-109); POTASSIUM 4.1 MEQ/L (3.7-5.4); SODIUM 138 MEQ/L (136-147)
[2017-12-17 07:56] LABS: CREATININE 0.3 MG/DL (0.6-1.3); GFR ESTIMATE (CALCULATED) > 59 mL/min/; GLUCOSE 119 mg/dL (70-99); UREA NITROGEN (BUN) 16 mg/dL (9-23)
[2017-12-18] VITALS (24 sets, daily range): BP systolic 74–114; BP diastolic 51–84
[2017-12-18 08:05] LABS: BASOPHIL (%) 0.2 % (0-1); EOSINOPHIL (%) 1.5 % (0-5); EOSINOPHIL COUNT 0.1 K/uL (0-0.3); HEMATOCRIT 29.8 % (36.0-46.0); HEMOGLOBIN 9.5 G/DL (11.9-15.5); IMMATURE GRANULOCYTE (%) 0.6 % (0.0-0.7); LYMPHOCYTE (%) 22.1 % (15-42); MCH 33.3 PG (29.0-34.0); MCHC 31.9 G/DL (30.0-36.0); MCV 104.6 FL (83-99); MONOCYTE (%) 7.7 % (3-12); MONOCYTE COUNT 0.4 K/uL (0-0.8); NEUTROPHIL (%) 67.9 % (45-76); NEUTROPHIL COUNT 3.2 K/uL (1.8-6.4); PLATELET COUNT 126 K/uL (156-360); RBC DIS.WIDTH-SD 53.7 % (39-53); RED BLOOD COUNT 2.85 M/uL (3.80-5.20); WHITE BLOOD COUNT 4.7 K/uL (4.1-10.2)
[2017-12-18 08:13] LABS: CHLORIDE 104 MEQ/L (99-109); POTASSIUM 4.1 MEQ/L (3.7-5.4); SODIUM 140 MEQ/L (136-147)
[2017-12-18 08:18] LABS: CREATININE 0.3 MG/DL (0.6-1.3); GFR ESTIMATE (CALCULATED) > 59 mL/min/; GLUCOSE 121 mg/dL (70-99); UREA NITROGEN (BUN) 17 mg/dL (9-23)
[2017-12-19] VITALS (15 sets, daily range): BP systolic 93–113; BP diastolic 60–80
[2017-12-19 07:30] LABS: BASOPHIL (%) 0.4 % (0-1); EOSINOPHIL (%) 0.8 % (0-5); HEMATOCRIT 29.1 % (36.0-46.0); HEMOGLOBIN 9.4 G/DL (11.9-15.5); IMMATURE GRANULOCYTE (%) 0.2 % (0.0-0.7); LYMPHOCYTE (%) 25.9 % (15-42); LYMPHOCYTE COUNT 1.3 K/uL (1.0-2.8); MCH 34.6 PG (29.0-34.0); MCHC 32.3 G/DL (30.0-36.0); MONOCYTE (%) 9.2 % (3-12); MONOCYTE COUNT 0.5 K/uL (0-0.8); NEUTROPHIL (%) 63.5 % (45-76); NEUTROPHIL COUNT 3.2 K/uL (1.8-6.4); PLATELET COUNT 121 K/uL (156-360); RBC DIS.WIDTH-CV 14.1 % (11.8-14.6); RBC DIS.WIDTH-SD 54.5 % (39-53); RED BLOOD COUNT 2.72 M/uL (3.80-5.20); WHITE BLOOD COUNT 5.1 K/uL (4.1-10.2)
[2017-12-19 07:56] LABS: CHLORIDE 104 MEQ/L (99-109); CREATININE 0.4 MG/DL (0.6-1.3); GFR ESTIMATE (CALCULATED) > 59 mL/min/; GLUCOSE 119 mg/dL (70-99); POTASSIUM 4.3 MEQ/L (3.7-5.4); SODIUM 140 MEQ/L (136-147); UREA NITROGEN (BUN) 18 mg/dL (9-23)
== END 2017-12-19 15:32 | disposition designated cancer center or children's hospital (05) | DRG 871 ==
LOC: EME → EDBD 20:25 → EME 20:25 → 4WEST 23:50 → EDOF 23:50 → 4EAST 23:50 → 4WEST 23:50 → ENRESERV 23:53 → 4EAST 12-09 01:14 → ENRESERV 12-09 16:03 → CANRESERV 12-09 16:03 → ENRESERV 12-09 17:22 → 4WEST 12-09 17:23
PROVIDERS: Emergency Medicine; Hospitalist; Internal Medicine; Internal Medicine Critical Care Medicine; Specialist
PROC: 5A1945Z Respiratory Ventilation, 24-96 Consecutive Hours (ICD-10-PCS; 2017-12-09)
PROC: 02HV33Z Insertion of Infusion Device into Superior Vena Cava, Percutaneous Approach (ICD-10-PCS; principal; 2017-12-10)
PROC: 5A1945Z Respiratory Ventilation, 24-96 Consecutive Hours (ICD-10-PCS; 2017-12-14)
DX: A41.9 Sepsis, unspecified organism (principal); J96.21 Acute and chronic respiratory failure with hypoxia; J15.9 Unspecified bacterial pneumonia; Y95 Nosocomial condition; J69.0 Pneumonitis due to inhalation of food and vomit; G93.1 Anoxic brain damage, not elsewhere classified; D64.9 Anemia, unspecified; D69.6 Thrombocytopenia, unspecified; R40.3 Persistent vegetative state; K56.7 Ileus, unspecified; K56.41 Fecal impaction; G80.1 Spastic diplegic cerebral palsy; S73.002A Unspecified subluxation of left hip, initial encounter; S73.005A Unspecified dislocation of left hip, initial encounter; G50.0 Trigeminal neuralgia; G89.29 Other chronic pain; R13.10 Dysphagia, unspecified; G40.909 Epilepsy, unspecified, not intractable, without status epilepticus; K21.9 Gastro-esophageal reflux disease without esophagitis; F32.9 Major depressive disorder, single episode, unspecified; F10.21 Alcohol dependence, in remission; Z93.0 Tracheostomy status; Z93.1 Gastrostomy status; Z99.11 Dependence on respirator [ventilator] status; Z66 Do not resuscitate; Z79.891 Long term (current) use of opiate analgesic; Z85.3 Personal history of malignant neoplasm of breast; Z86.14 Personal history of Methicillin resistant Staphylococcus aureus infection; Z87.01 Personal history of pneumonia (recurrent); Z87.440 Personal history of urinary (tract) infections; Z87.820 Personal history of traumatic brain injury; Z87.891 Personal history of nicotine dependence; Z88.1 Allergy status to other antibiotic agents
CPT/HCPCS: 36600; 71045; 74018; 74176; 80048; 80048 91; 80053; 80170; 81003; 82607; 82746; 82803; 83605; 83735; 84100; 84145 90; 84484; 85025; 85025 91; 85027; 86141; 87040; 87070; 87081; 87086; 87205; 87449; 87502; 87641; 93005; 94002; 94003; 94640; 94640 76; 94760; 94799; 99202; 99281; 99285; C1751; J1580; J1650; J1940; J2020; J2543; J2930; J7030; J7040; J7050; S0028

== ENCOUNTER 2017-12-19 16:20 | Emergency (ER) | payer OTHER ==
[~2017-12-19] VITALS: Ht 144.8 cm; Wt 55.5 kg
[~2017-12-19 16:20] MED LIST changes: +AMOX TR-K CLV1 EAC4 PO; +FERROUS SU220 MG/53 GT; +REGLAN10 MG/10 M PO
[2017-12-19 21:40] VITALS: BP 107/74
== END 2017-12-19 21:40 ==
LOC: EME 16:20
DX: K59.00 Constipation, unspecified (principal); G82.50 Quadriplegia, unspecified; M41.9 Scoliosis, unspecified; M21.952 Unspecified acquired deformity of left thigh; M21.951 Unspecified acquired deformity of right thigh; M85.80 Other specified disorders of bone density and structure, unspecified site; K21.9 Gastro-esophageal reflux disease without esophagitis; A60.00 Herpesviral infection of urogenital system, unspecified; E05.90 Thyrotoxicosis, unspecified without thyrotoxic crisis or storm; J96.10 Chronic respiratory failure, unspecified whether with hypoxia or hypercapnia; R40.3 Persistent vegetative state; F32.9 Major depressive disorder, single episode, unspecified; Z93.1 Gastrostomy status; Z93.0 Tracheostomy status; Z97.8 Presence of other specified devices; Z90.10 Acquired absence of unspecified breast and nipple; Z87.01 Personal history of pneumonia (recurrent); Z87.442 Personal history of urinary calculi; Z87.820 Personal history of traumatic brain injury; Z85.3 Personal history of malignant neoplasm of breast; Z86.018 Personal history of other benign neoplasm; Z88.5 Allergy status to narcotic agent; Z88.2 Allergy status to sulfonamides; Z88.1 Allergy status to other antibiotic agents; Z88.8 Allergy status to other drugs, medicaments and biological substances
CPT/HCPCS: 74022; 80053; 81003; 85027; 85610; 94002; 99281; 99284